=== PATIENT | female | born 1945 | race Caucasian/White ===

== ENCOUNTER → 2016-09-17 | Outpatient (CLI) | payer MEDICARE ==
--- NOTE | 2016-09-17 15:45 | US ---
EXAMINATION TYPE: US carotid duplex BILAT DATE OF EXAM: 09/17/2016 COMPARISON: NONE CLINICAL HISTORY: 70-year-old female E03.9 Acquired Hypothyroidism. Bruit TECHNIQUE: Carotid duplex ultrasound examination. Indirect Doppler criteria was utilized. FINDINGS: There are minimal atherosclerotic changes of the bifurcations with slight intimal thickening. Tortuou s distal vessels are present. EXAM MEASUREMENTS: RIGHT: Peak Systolic Velocity (PSV) cm/sec ----- Right CCA: 67.7 ----- Right ICA: 106 ----- Right ECA: 112 ICA/CCA ratio: 1.5 RIGHT: End Diastole cm/sec ----- Right CCA: 24.9 ----- Right ICA: 34.8 ----- Right ECA: 20.5 LEFT: Peak Systolic Velocity (PSV) cm/sec ----- Left CCA: 88.7 ----- Left ICA: 97.7 ----- Left ECA: 71.3 ICA/CCA ratio: 1.1 LEFT: End Diastole cm/sec ----- Left CCA: 27.2 ----- Left ICA: 39.5 ----- Left ECA: 10.4 VERTEBRALS (direction of flow): Right Vertebral: Antegrade Left Vertebral: Antegrade IMPRESSION: No hemodynamically significant stenosis appreciated in either internal carotid artery. Criteria for Assigning % of Stenosis / Diameter reduction (Estimation based on the indirect measurements of the internal carotid artery velocities (ICA PSV). 1. Normal (no stenosis)=ICA PSV < 125 cm/s: ratio < 2.0: ICA EDV<40 cm/s. 2. Less than 50% stenosis=ICA PSV < 125 cm/s: ratio < 2.0: ICA EDV<40 cm/s. 3. 50 to 69% stenosis=ICA PSV of 125 to 230 cm/s: ration 2.0 ? 4.0: ICA EDV 40-100 cm/s. 4. Greater than 70% stenosis to near occlusion= ICA PSV > 230 cm/s: ratio > 4.0: ICA EDV > 100 cm/s. 5. Near occlusion= ICA PSV velocities may be low or undetectable: variable ratio and ICA EDV. 6. Total occlusion=unable to detect flow.
== END | disposition home or self-care (01) ==
LOC: RADUSWWP 14:12
PROVIDERS: ATTEND Internal Medicine
DX: E03.9 Hypothyroidism, unspecified (principal); H93.A1 Pulsatile tinnitus, right ear
CPT/HCPCS: 93880

== ENCOUNTER → 2021-08-24 | Outpatient (CLI) | payer MEDICARE ==
--- NOTE | 2021-08-24 16:18 | XR ---
EXAMINATION TYPE: XR Hip Bilateral and AP pelvis DATE OF EXAM: 08/24/2021 COMPARISON: NONE HISTORY: Right leg/groin pain for one month. TECHNIQUE: A single AP view of the pelvis is obtained. Two views of the each hip are obtained. FINDINGS: Mild degenerative changes of the hip joints. Tiny enthesophytosis of the femoral greater trochanter b ilaterally. Subtle cortical irregularity along the medial aspect of the left femoral neck which could represent sequela of previous trauma, please correlate clinically. No definite acute fracture line identified otherwise. Grossly unremarkable sacroiliac joints. Degener ative changes of the lower lumbar spine. Fecal loading of the colon. IMPRESSION: Degenerative changes and incidental findings as described above.
== END | disposition home or self-care (01) ==
LOC: RADXRMAIN 14:03
PROVIDERS: ATTEND Internal Medicine
DX: M16.0 Bilateral primary osteoarthritis of hip (principal)
CPT/HCPCS: 73521

== ENCOUNTER → 2023-08-23 | Outpatient (CLI) | payer MEDICARE ==
--- NOTE | 2023-08-23 16:03 | US ---
EXAMINATION TYPE: US venous doppler duplex LE BI DATE OF EXAM: 08/23/2023 2:34 PM COMPARISON: 01/31/16 CLINICAL INDICATION: Female, 77 years old with history of R22.41 LOCALIZED SWELLING, MASS AND LUMP, R IGHT LO; swelling and lump in rt calf SIDE PERFORMED: Bilateral TECHNIQUE: The lower extremity deep venous system is examined utilizing real time linear array sonog mariana with graded compression, doppler sonography and color-flow sonography. VESSELS IMAGED: Common Femoral Vein Deep Femoral Vein Greater Saphenous Vein * Femoral Vein Popliteal Vein Small Saphenous Vein * Proximal Calf Veins (* superficial vessels) Right Leg: Negative for DVT. Echoes seen in a superficial vein in the posterior calf Left Leg: Negative for DVT IMPRESSION: 1. No evidence of DVT in either lower extremity. 2. Findings suggest superficial thrombophlebitis in the posterior right calf.
== END | disposition home or self-care (01) ==
LOC: RADUSWWP 14:09
PROVIDERS: ATTEND Internal Medicine
DX: R22.41 Localized swelling, mass and lump, right lower limb (principal); I82.439 Acute embolism and thrombosis of unspecified popliteal vein; Z86.718 Personal history of other venous thrombosis and embolism
CPT/HCPCS: 93970

== ENCOUNTER → 2024-09-16 | Outpatient (CLI) | payer MEDICARE ==
--- NOTE | 2024-09-17 15:15 | MM ---
Reason for Exam: Screening (asymptomatic). Last mammogram was performed 4 year(s) and 0 month(s) ago. Patient History: Menarche at age 9. First Full-Term at age 21. Hysterectomy at age 38. Postmenopausal. Estrogen for 18 years from age 39 until age 57. Hormonal Contraceptives for 8 years from age 18 until age 26. 1995, Bilateral Implant Removal. 1978, Bilateral Implants. Risk Values: Felicia 5 year model risk: 1.6%. NCI Lifetime model risk: 2.5%. Prior Study Comparison: 05/29/2006 Bilateral Screening Mammogram, [facility]. 06/03/2006 Right Diagnostic Mammogram, [facility]. 06/12/2007 Bilateral Diagnostic Mammogram, [facility]. 03/07/2018 Bilateral Screening Mammogram, [facility]. 09/22/2020 Bilateral Screening Mammogram, [facility]. Tissue Density: There are scattered areas of fibroglandular density. Findings: Analyzed By CAD. There is no suspicious group of microcalcifications or new suspicious mass in either breast. Overall Assessment: Negative, BI-RAD 1 Management: Screening Mammogram of both breasts in 1 year. . Patient should continue monthly self-breast exams. A clinical breast exam by your physician is recommended on an annual basis. This exam should not preclude additional follow-up of suspicious palpable abnormalities. Note on Felicia scores and lifetime risk: 1. A Felicia score greater than 3% is considered moderate risk. If this is the case, consider specialist referral to assess eligibility for a risk reducing agent. 2. If overall lifetime risk for the development of breast cancer is 20% or higher, the patient may qualify for future screening with alternating mammogram and breast MRI. [facility], , 09/17/2024 3:12 PM. Electronically signed and approved by: Julian Mcintosh M.D.
== END | disposition home or self-care (01) ==
LOC: RADMAMWWP 11:55
PROVIDERS: ATTEND Internal Medicine
DX: Z12.31 Encounter for screening mammogram for malignant neoplasm of breast (principal); R92.323 Mammographic fibroglandular density, bilateral breasts; Z78.0 Asymptomatic menopausal state; Z92.0 Personal history of contraception; Z98.82 Breast implant status
CPT/HCPCS: 77063; 77067